=== PATIENT | female | born 1975 | race Caucasian/White ===

== ENCOUNTER 2020-11-30 14:04 | Emergency (ER) | payer OTHER ==
[~2020-11-30] VITALS: Ht 165.1 cm; Wt 97.5 kg
[2020-11-30 14:14] VITALS: BP_SYST 156
--- NOTE | 2020-11-30 14:14 | NUR ---
PT TO REMAIN IN THE ER LOBBY UNTIL ER BED BECOMES AVAILABLE.
--- NOTE | 2020-11-30 15:50 | NUR ---
PT TO TESSY ALONSO FOR EVALUATION.
--- NOTE | 2020-11-30 15:55 | NUR ---
PATIENT BROUGHT IN AMBULATORY COMPLAINING OF RIGHT LOWER ABDOMINAL PAIN X 6 DAYS. PATIENT REPORTS PAIN WAXES AND WANES BUT WORSENS IMMEDIATELY AFTER EATING AND IS SHARP IN NATURE. PAIN 8/10. PATIENT DENIES ANY DIARRHEA, CONSTIPATION, DYSURIA, CHEST PAIN OR SHORTNESS OF BREATH. PATIENT DENIES ANY MEDICAL HX. NO OTHER COMPLAINTS/INJURIES PER PATIENT OR NOTED. WILL CONTINUE TO MONITOR.
[2020-11-30] MEDS ORDERED: NACL 0.9% 1,000 ML IV ONE (16:00)
[2020-11-30] MEDS ORDERED: ONDANSETRON HCL 4 MG/2 ML VIAL IVP ONE (16:00)
[2020-11-30] MEDS ORDERED: KETOROLAC TROMETHAMINE 30 MG VIAL IVP ONE (16:00)
--- NOTE | 2020-11-30 16:01 | NUR ---
# 20 gauge angiocath placed to left hand. Use of asceptic technique. Opsite placed over site. Blood return noted. Blood for lab drawn from site. Flushed with 10 cc of normal saline. No evidence of infiltration noted. Patient tolerated well.
--- NOTE | 2020-11-30 16:02 | NUR ---
ER Dr. Momin at bedside examining patient.
[2020-11-30 16:23] LABS: BASOPHILS # (AUTO) 0.1 K/uL (0.0-0.2); BASOPHILS % (AUTO) 0.8 % (0.0-2.0); EOSINOPHILS # (AUTO) 0.7 K/uL (0.0-0.4); EOSINOPHILS % (AUTO) 4.7 % (0.0-4.0); HEMATOCRIT 33.9 % (36-48); LYMPHOCYTES # (AUTO) 2.8 K/uL (1.0-5.5); LYMPHOCYTES % (AUTO) 20.1 % (20.5-51.5); MEAN CORPUSCULAR HEMOGLOBIN 25 pg (27-31); MEAN CORPUSCULAR HGB CONC 33 % (32-36); MEAN CORPUSCULAR VOLUME 75 fL (79.0-98.0); MONOCYTES # (AUTO) 0.8 K/uL (0.0-1.0); MONOCYTES % (AUTO) 5.7 % (1.7-9.3); NEUTROPHILS # (AUTO) 9.7 K/uL (1.8-7.7); NEUTROPHILS % (AUTO) 68.7 % (40.0-70.0); PLATELET COUNT (AUTO) 438 K/uL (130-430); RED CELL DISTRIBUTION WIDTH 16.8 % (9.0-15.0); WHITE BLOOD COUNT (AUTO) 14.1 K/uL (4.8-10.8)
--- NOTE | 2020-11-30 16:51 | NUR ---
PATIENT OFF UNIT TO ULTRASOUND WITH TECH.
[2020-11-30 16:57] LABS: ANION GAP 7 (5-15); CALCIUM 9.2 mg/dL (8.4-11.0); CHLORIDE 102 mmol/L (98-107); CREATININE 0.74 mg/dL (0.55-1.30); GLUCOSE 107 mg/dL (70-99); POTASSIUM 4.1 mmol/L (3.5-5.1); SODIUM SERUM 135 mmol/L (136-145); UREA NITROGEN, BLOOD 14 mg/dL (8-21)
[2020-11-30 16:59] LABS: GFR AFRICAN AMERICAN 110 mL/min (>90)
[2020-11-30 17:08] LABS: ALANINE AMINOTRANSFERASE 28 U/L (12-78); ALBUMIN 3.2 g/dL (3.4-4.8); ASPARTATE AMINOTRANSFERASE 20 U/L (10-37); LIPASE 105 U/L (73-393); TOTAL BILIRUBIN 0.3 mg/dL (0.0-1.0)
[2020-11-30 17:09] LABS: HCG,QUANTITATIVE 2 mIU/ML (0-6)
--- NOTE | 2020-11-30 17:16 | NUR ---
PATIENT RETURNED FROM ULTRASOUND
[2020-11-30] MEDS ORDERED: MORPHINE 4 MG INJ. 4 MG/ML VIAL IVP ONE ×2 (17:30→20:15)
--- NOTE | 2020-11-30 18:07 | NUR ---
URINE SAMPLE COLLECTED AND SENT TO LAB
[2020-11-30 18:11] LABS: BILIRUBIN,URINE NEGATIVE (NEGATIVE); BLOOD, URINE 2+ (NEGATIVE); COLOR,URINE YELLOW (YELLOW); GLUCOSE,URINE NEGATIVE (NEGATIVE); KETONES,URINE NEGATIVE (NEGATIVE); LEUKOCYTE ESTERASE ,URINE NEGATIVE (NEGATIVE); NITRITE, URINE NEGATIVE (NEGATIVE); PH,URINE 5.5 (5.0-8.0); PROTEIN URINE NEGATIVE (NEGATIVE); UROBILINOGEN,URINE 0.2 (0.2-1.0)
[2020-11-30 18:12] LABS: CLARITY/URINE SLIGHTLY HAZY (CLEAR)
[2020-11-30 18:29] LABS: BACTERIA,URINE FEW /HPF (None Seen); MUCUS,URINE 2+ /LPF (None Seen); WBC,URINE 0-3 /HPF (0-3)
--- NOTE | 2020-11-30 19:58 | NUR ---
ER Dr. ESPINAL at bedside DISCUSSING RESULTS
[2020-11-30] MEDS ORDERED: OMEP20CA15 PO (20:03)
[2020-11-30] MEDS ORDERED: SUCR1TAB78 PO (20:03)
[2020-11-30 20:23] VITALS: BP_SYST 126
--- NOTE | 2020-11-30 20:23 | NUR ---
Patient given written and verbal discharge instructions and verbalizes understanding. ER MD discussed with patient the results and treatment provided. Patient in stable condition. ID arm band removed. IV catheter removed intact and dressing applied, no active bleeding. Rx of omeprazole and carafate given. Patient educated on pain management and to follow up with PMD. Pain Scale 0/10 Opportunity for questions provided and answered. Medication side effect fact sheet provided.
== END 2020-11-30 20:23 | disposition home or self-care (01) ==
LOC: SED 14:04
DX: R10.11 Right upper quadrant pain (principal); N83.8 Other noninflammatory disorders of ovary, fallopian tube and broad ligament; E27.8 Other specified disorders of adrenal gland; Z79.899 Other long term (current) drug therapy
CPT/HCPCS: 36415; 74176; 76376; 76705; 80053; 81000; 83690; 84484; 84702; 85025; 93005; 96361; 96374; 96375; 96376; 99285; J1885; J2270; J2405; J7030